=== PATIENT | female | born 1945 | race Caucasian/White ===

== ENCOUNTER → 2019-11-01 | Outpatient (CLI) | payer MEDICARE ==
[~2019-11-01] MED LIST: ATOR40TA59 PO; GADOTERATE 5 MMOL/10ML VIAL. IVP ONE; LEVO150T5 PO; LISI-130 PO; METF500T16 PO; METO-239 PO; NAPR-514 PO; OMEP20TA8 PO; TRAM50TA PO
--- NOTE | 2019-11-01 12:19 | KCIC ---
BRAIN WO/W CONTRAST History:Reason: MEMORY CHANGES / Spl. Instructions: Episode last week of not being able to finish sentences. / History: Worsening forgetfullness. Technique: Multiplanar, multi sequential without and with intravenous contrast MR imaging was performed of the brain. Comparison: None Findings: Acute to subacute left posterior periventricular parietal, occipital and posterior temporal infarcts with mild edema. No additional infarcts. No acute intracranial hemorrhage. No significant mass effect. No hydrocephalus. Mild additional foci of FLAIR hyperintensities within the hemispheric white matter, most often due to chronic microvascular ischemia. No pathologic enhancement. T2 hyperintense nonenhancing left frontal calvarial lesion measures 2.7 x 1.4 cm with expansion of the cortex. Imaged orbits are unremarkable. Imaged paranasal sinuses and mastoid air cells are clear. Impression: 1. Acute to subacute left posterior periventricular infarcts. 2. Left frontal cortical calvarial expansile nonenhancing cystic lesion, favor benign etiology. Recommend comparison with prior imaging studies. If prior imaging studies are not available, recommend follow-up. FOR INTERNAL CODING PURPOSES Critical result: Findings discussed with KATHRYN MENDEZ at 11/01/2019 12:15 PM. RESULT CODE: (C) Electronically signed by: Twin Goetz DO (11/01/2019 12:16 PM) [id number]
== END ==
LOC: KCIC MRI 10:05
PROVIDERS: ATTEND Nurse Practitioner Family
DX: I63.9 Cerebral infarction, unspecified (principal); R41.3 Other amnesia
CPT/HCPCS: 70553; A9575

== ENCOUNTER → 2019-11-17 | Outpatient (CLI) | payer MEDICARE ==
[~2019-11-17] MED LIST changes: -GADOTERATE 5 MMOL/10ML VIAL. IVP ONE
--- NOTE | 2019-11-17 15:46 | KCIC ---
EXAM: CAROTID DOPPLER SONOGRAM. HISTORY: Cerebrovascular accident, aphasia, memory loss, hypertension. TECHNIQUE: Omalley scale and color Doppler sonographic evaluation of the neck with spectral waveform analysis was performed and static images are submitted for review. FINDINGS: RIGHT: The peak systolic velocity within the common carotid artery is 47 cm/sec. The peak systolic velocity within the internal carotid artery is 61 cm/sec and the end diastolic velocity within the internal carotid artery is 15 cm/sec. The ICA/CCA ratio is 0.78. Grayscale images demonstrate moderate plaquing along the right proximal and mid internal carotid artery without clear grayscale stenosis. LEFT: The peak systolic velocity within the common carotid artery is 50 cm/sec. The peak systolic velocity within the internal carotid artery is 79 cm/sec and the end diastolic velocity within the internal carotid artery is 7 cm/sec. The ICA/CCA ratio is 0.83. Grayscale images demonstrate mild plaquing without clear grayscale stenosis. There is antegrade flow within both vertebral arteries. IMPRESSION: 1. Mixed carotid plaquing on the right greater than left. No evidence of hemodynamically significant stenosis. PQRS Compliance Statement - Stenosis calculations for CT, MR and conventional angiography are based upon measurement of the distal ICA diameter in accordance with the NASCET methodology. Stenosis calculations for carotid ultrasound studies are derived from validated velocity criteria which are known to correlate with the NASCET methodology. Electronically signed by: Karlos Hu MD (11/17/2019 3:43 PM) [id number]
== END | disposition home or self-care (01) ==
LOC: KCIC US 14:32
PROVIDERS: ATTEND Nurse Practitioner Family
DX: I63.89 Other cerebral infarction (principal); I65.23 Occlusion and stenosis of bilateral carotid arteries; I10 Essential (primary) hypertension
CPT/HCPCS: 93880

== ENCOUNTER → 2019-12-01 | Outpatient (CLI) | payer MEDICARE ==
--- NOTE | 2019-12-01 16:40 | CARD ---
MR#: [id number] Date of Study: 12/01/2019 Ordering Physician: KATHRYN MENDEZ, Referring Physician: KATHRYN MENDEZ Tech: Corrina Leary RDCS APPROVED REPORT EXAM: Two-dimensional and M-mode echocardiogram with Doppler and color Doppler. Other Information Quality : Good INDICATION CVA/TIA 2D DIMENSIONS RVDd3.0 (2.9-3.5cm)Left Atrium(2D)4.4 (1.6-4.0cm) IVSd1.2 (0.7-1.1cm)Aortic Root(2D)2.7 (2.0-3.7cm) LVDd4.9 (3.9-5.9cm)LVOT Diameter2.0 (1.8-2.4cm) PWd1.2 (0.7-1.1cm)LVDs3.9 (2.5-4.0cm) FS (%) 20.6 %SV47.6 ml Aortic Valve AoV Peak Roberto.169.1cm/sAoV VTI36.0cm AO Peak GR.11.4mmHgLVOT Peak Roberto.112.7cm/s AO Mean GR.7mmHgAVA (VMAX)2.02cm2 HELGA (VTI)2.20cm2 Mitral Valve MV E Lsuaqltl11.7cm/sMV DECEL [id number] MV A Wkqyicmb674.2cm/sE/A Ratio0.9 Tricuspid Valve TR P. Vmkagweh450hd/sRAP YOSCIETJ7arAs TR Peak Gr.65ltBmLXBZ32bzZm Pulmonary Vein S1 Yorpeane21.6cm/sD2 Wfrccosx88.9cm/s LEFT VENTRICLE The left ventricle is normal size. There is mild concentric left ventricular hypertrophy. The left ve ntricular systolic function is normal and the ejection fraction is within normal range. The Ejection Fraction is 50-55%. There is normal LV segmental wall motion. Transmitral Doppler flow pattern is Gra de I-abnormal relaxation pattern. RIGHT VENTRICLE The right ventricle is normal size. The right ventricular systolic function is normal. ATRIA The left atrium is mildly dilated. The right atrium size is normal. The interatrial septum is intact with no evidence for an atrial septal defect or patent foramen ovale as noted on 2-D or Doppler imagi ng. AORTIC VALVE The aortic valve is calcified but opens well. Doppler and Color Flow revealed no significant aortic r egurgitation. There is no significant aortic valvular stenosis. MITRAL VALVE The mitral valve is normal in structure and function. There is no evidence of mitral valve prolapse. There is no mitral valve stenosis. Doppler and Color-flow revealed mild mitral regurgitation. TRICUSPID VALVE The tricuspid valve is normal in structure and function. Doppler and Color Flow revealed mild tricusp id regurgitation. The PA pressure was estimated at 64 mmHg. There is no tricuspid valve stenosis. PULMONIC VALVE The pulmonic valve is not well visualized. Doppler and Color Flow revealed no pulmonic valvular regur gitation. There is no pulmonic valvular stenosis. GREAT VESSELS The aortic root is normal in size. The ascending aorta is normal in size. The IVC is normal in size a nd collapses >50% with inspiration. PERICARDIAL EFFUSION There is no evidence of significant pericardial effusion. Critical Notification Critical Value: No <Conclusion> The left ventricle is normal size. The left ventricular systolic function is normal and the ejection fraction is within normal range. The Ejection Fraction is 50-55%. There is mild concentric left ventricular hypertrophy. Doppler and Color Flow revealed no significant aortic regurgitation. There is no significant aortic valvular stenosis. Doppler and Color-flow revealed mild mitral regurgitation. Doppler and Color Flow revealed mild tricuspid regurgitation. The PA pressure was estimated at 64 mmHg. Signed by : Ketan Ellis MD Electronically Approved : 12/01/2019 16:40:19
== END | disposition home or self-care (01) ==
LOC: ECHO 10:27
PROVIDERS: ATTEND Nurse Practitioner Family
DX: I08.3 Combined rheumatic disorders of mitral, aortic and tricuspid valves (principal); I63.9 Cerebral infarction, unspecified
CPT/HCPCS: 93306

== ENCOUNTER → 2020-05-29 | Outpatient (CLI) | payer MEDICARE ==
--- NOTE | 2020-05-29 12:26 | KCIC ---
EXAMINATION: Magnetic resonance imaging (MRI) of the brain and brainstem without contrast 05/29/2020 10 :55 AM HISTORY: History of stroke TECHNIQUE: Multiplanar multi-weighted MRI of the brain and brainstem was performed without intravenou s contrast using the general brain protocol. COMPARISON: MRI brain 11/01/2019 FINDINGS: Stable appearance of a 3.4 x 1.7 x 3.3 cm expansile cystic lesion involving the left frontal calvaria with erosion and defect along the inner table with minimal protrusion of liz matter (series 5, imag e 15). This lesion is identified along the superior orbital wall. The superior sagittal sinus demonst rates normal venous flow. The corpus callosum is normal in shape and signal intensity. The posterior fossa is unremarkable. The pituitary and sella are normal. The brainstem and craniocervical juncti on are unremarkable. There are T2/FLAIR signal hyperintense foci in the periventricular and subcortic al white matter with areas of confluence most suggestive of moderate chronic small vessel ischemic ch anges. Scalp is intact. There is encephalomalacia involving the left periatrial white matter as well as the left occipital horn periventricular white matter compatible with now chronic infarct. Diffusion weighted images reveal no hyperintensities to suggest acute cerebral infarction. The suscep tibility weighted sequences reveal no evidence of acute or chronic hemorrhage. The ventricles are nor mal in size and position without evidence of hydrocephalus. The paranasal sinuses are normal. The visualized portions of the mastoids are unremarkable. The orbi ts appear normal. Normal flow voids are demonstrated in the carotid arteries and basilar artery. IMPRESSION: 1. No evidence for acute or subacute ischemic changes. Now chronic ischemic changes identified in the left periatrial and parietal occipital white matter. No significant hemorrhage, mass effect or midli ne shift. 2. There are T2/FLAIR signal hyperintense foci in the periventricular and subcortical white matter wi th areas of confluence most suggestive of moderate chronic small vessel ischemic changes. 3. Stable cystic expansile lesion involving the left frontal calvaria with involvement of the superio r orbital wall measuring 3.4 x 1.7 x 3.5 cm. Of note, there is protrusion of liz matter secondary to focal cortical defect along the inner table. Correlation with CT imaging could be of benefit. 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 Electronically signed by: Latonia Sim MD (05/29/2020 12:24 PM) [id number]
== END ==
LOC: KCIC MRI 10:38
PROVIDERS: ATTEND Nurse Practitioner Family
DX: G93.89 Other specified disorders of brain (principal); Z86.73 Personal history of transient ischemic attack (TIA), and cerebral infarction without residual deficits
CPT/HCPCS: 70551

== ENCOUNTER → 2021-06-26 | Outpatient (CLI) | payer MEDICARE ==
--- NOTE | 2021-06-26 15:13 | CARD ---
MR#: [id number] Date of Study: 06/26/2021 Ordering Physician: GABRIEL RANGLE, Referring Physician: GABRIEL RANGEL, Tech: Enma Bennett [facility] APPROVED REPORT EXAM: Two-dimensional and M-mode echocardiogram with Doppler and color Doppler. Other Information Quality : AverageHR: 82bpm Rhythm : NSR INDICATION CVA/TIA RISK FACTORS Hypertension Obesity Hyperlipidemia Diabetes 2D DIMENSIONS RVDd3.8 (2.9-3.5cm)Left Atrium(2D)4.7 (1.6-4.0cm) IVSd1.1 (0.7-1.1cm)Aortic Root(2D)3.0 (2.0-3.7cm) LVDd5.3 (3.9-5.9cm)LVOT Diameter2.4 (1.8-2.4cm) PWd1.1 (0.7-1.1cm)IVSs1.9 (0.8-1.2cm) LVDs3.8 (2.5-4.0cm)FS (%) 27.7 % PWs1.5 (0.8-1.2cm)SV70.8 ml LVEF(%)53.3 (>50%) Aortic Valve AoV Peak Roberto.190.1cm/sAoV VTI41.5cm AO Peak GR.14.4mmHgLVOT Peak Roberto.109.3cm/s LVOT VTI 24.27cmAO Mean GR.8mmHg HELGA (VMAX)1.73pv8TSV (VTI)2.64cm2 Mitral Valve MV E Lmoiskeg50.9cm/sMV DECEL [id number] MV A Kpvdkpil93.2cm/sMV DLW47vn E/A Ratio1.0MVA (PHT)4.10cm2 TDI E/Lateral E'8.3E/Medial E'8.7 Pulmonary Valve PV Peak Ftnzacqd84.5cm/sPV Peak Grad.3mmHg Tricuspid Valve TR P. Cfspqoqt311ag/sTR Peak Gr.47mmHg LEFT VENTRICLE The left ventricle is normal size. There is mild concentric left ventricular hypertrophy. The left ve ntricular systolic function is normal and the ejection fraction is within normal range. Estimated eje ction fraction 60%. There is normal LV segmental wall motion. The left ventricular diastolic function and filling is normal for age. RIGHT VENTRICLE The right ventricle is normal size. There is normal right ventricular wall thickness. The right ventr icular systolic function is normal. ATRIA The left atrium is mildly dilated. The right atrium size is normal. The interatrial septum is intact with no evidence for an atrial septal defect or patent foramen ovale as noted on 2-D or Doppler imagi ng. AORTIC VALVE The aortic valve is normal in structure and function. Doppler and Color Flow revealed no significant aortic regurgitation. There is no significant aortic valvular stenosis. MITRAL VALVE The mitral valve is normal in structure and function. There is no evidence of mitral valve prolapse. There is no mitral valve stenosis. Doppler and Color-flow revealed mild mitral regurgitation. TRICUSPID VALVE The tricuspid valve is normal in structure and function. Doppler and Color Flow revealed mild tricusp id regurgitation. Estimated PAP 55-57 mmHg. There is no tricuspid valve stenosis. PULMONIC VALVE Doppler and Color Flow revealed no pulmonic valvular regurgitation. There is no pulmonic valvular gerardo nosis. GREAT VESSELS The aortic root is normal in size. The ascending aorta is normal in size. The IVC is normal in size a nd collapses >50% with inspiration. PERICARDIAL EFFUSION There is no evidence of significant pericardial effusion. Critical Notification Critical Value: No <Conclusion> The left ventricular systolic function is normal and the ejection fraction is within normal range. E stimated ejection fraction 60%. There is normal LV segmental wall motion. Doppler and Color-flow revealed mild mitral regurgitation. Doppler and Color Flow revealed mild tricuspid regurgitation. Estimated PAP 55-57 mmHg. Signed by : Gabriel Rangel, Electronically Approved : 06/26/2021 15:13:11
== END ==
LOC: ECHO 09:48
PROVIDERS: ATTEND Internal Medicine Cardiovascular Disease
DX: I08.1 Rheumatic disorders of both mitral and tricuspid valves (principal); I63.9 Cerebral infarction, unspecified
CPT/HCPCS: 93306; C8929

== ENCOUNTER → 2021-07-24 | Outpatient (CLI) | payer MEDICARE ==
[~2021-07-24] MED LIST changes: -OMEP20TA8 PO; +OMEP20TA91 PO
--- NOTE | 2021-07-24 17:58 | RAD ---
MR#: [id number] Date of Study: 07/24/2021 Ordering Physician: GABRIEL RANGEL, Referring Physician: GABRIEL RANGEL, Tech: Anayeli Thomas RVT, CARLOS APPROVED REPORT Patient Location: OUT-PATIENT Laterality:Bilateral Indications CVA/TIA: Risk Factors Hypertension: Diabetes, Doppler Spectral Velocity Analysis Right Left pCCA 101/14 cm/spCCA 79/9 cm/s mCCA 85/14 cm/smCCA 52/9 cm/s dCCA 53/10 cm/sdCCA 43/7 cm/s ECA 73/ cm/sECA 82/ cm/s pICA 39/9 cm/spICA 70/8 cm/s [place] 69/18 cm/smICA 91/11 cm/s dICA 42/10 cm/sdICA 65/9 cm/s ICA/CCA 0.68ICA/CCA 1.15 Findings Grayscale images of extracranial carotid arteries bilaterally showed mild to moderate atherosclerotic plaque involving the right carotid bifurcation. Spectral waveform and color duplex analysis showed normal velocities in bilateral common, internal and external carotid arteries. The ICA to CCA ratios were within normal limits. The vertebral arteries bilaterally showed antegrade flow with normal prabhjot ocities. No significant carotid artery stenosis were noted. Critical Notification Critical Value: No <Conclusion> Carotid arterial duplex scan did not show any significant carotid artery stenosis. Signed by : Ruddy Davies, Electronically Approved : 07/24/2021 17:57:47
== END ==
LOC: KCIC US 13:09
PROVIDERS: ATTEND Internal Medicine Cardiovascular Disease
DX: I65.23 Occlusion and stenosis of bilateral carotid arteries (principal)
CPT/HCPCS: 93880